=== PATIENT | female | born 1990 | race Caucasian/White ===

== ENCOUNTER → 2019-07-02 09:46 | Outpatient (CLI) | payer OTHER, SELFPAY ==
--- NOTE | 2019-07-02 09:51 | DI.US.S_ITS ---
PROCEDURE: US OB <= 14 WEEKS FETUS INDICATIONS: INITIAL ULTRASOUND FOR DATING AND VIABILITY PLEASE OUTSIDE/PRIOR DATING DATA: Last menstrual period (LMP): Unknown. LMP-based estimated date of delivery (ALICE): Unknown. First dating scan (date and location): 07/02/2019. Estimated date of delivery (ALICE) from first dating scan: 02/18/2020. TECHNIQUE: Real-time scanning was performed of the fetus and maternal pelvic organs, with image documentation. Endovaginal scanning was also performed to better visualize the fetus and maternal ovaries. COMPARISON: None. FINDINGS: Embryo: Mean gestational sac diameter measures 2.1 cm, corresponding with estimated gestational age of 7 weeks 0/7 days. No definite pole or yolk sac visualized. Measurement variability in dating: +/- 4 weeks by LMP, +/- 7 days by mean sac diameter (use before 6 weeks gestation if crown-rump length not able to be measured), +/- 5 days by crown-rump length (up to 8 weeks 6 days gestation), +/- 7 days by crown-rump length (up to 13 weeks 6 days gestation). Maternal organs: Ovaries are are within normal limits. Question of right corpus luteum. Trace free fluid in the pelvic colon sac. IMPRESSION: Intrauterine gestational sac corresponding to a estimated gestational age of approximately 7 weeks 0/7 days. No definite pole seen. Recommend short-term followup ultrasound to document crown-rump length for more accurate gestational age dating. Dictated by: Terry Gaffney M.D. on 07/02/2019 at 12:26 Approved by: Terry Gaffney M.D. on 07/02/2019 at 12:32
== END ==
PROVIDERS: PCP Obstetrics & Gynecology; Visit Provider Obstetrics & Gynecology
DX: Z34.81 Encounter for supervision of other normal pregnancy, first trimester (principal); Z3A.01 Less than 8 weeks gestation of pregnancy
CPT/HCPCS: 76801; 76817

== ENCOUNTER → 2019-07-11 14:09 | Outpatient (CLI) | payer OTHER, SELFPAY ==
[2019-07-11 16:14] LABS: HCG Quantitative /Beta subunit 5673.3 mIU/mL
== END ==
PROVIDERS: PCP Obstetrics & Gynecology; Visit Provider Obstetrics & Gynecology
DX: O20.9 Hemorrhage in early pregnancy, unspecified (principal)
CPT/HCPCS: 36415; 84702

== ENCOUNTER → 2019-07-15 12:02 | Outpatient (CLI) | payer OTHER, SELFPAY ==
[2019-07-15 13:27] LABS: HCG Quantitative /Beta subunit 2613.2 mIU/mL
== END ==
PROVIDERS: PCP Obstetrics & Gynecology; Visit Provider Obstetrics & Gynecology
DX: N91.2 Amenorrhea, unspecified (principal)
CPT/HCPCS: 36415; 84702

== ENCOUNTER → 2020-04-21 13:34 | Outpatient (CLI) | payer OTHER, SELFPAY ==
[2020-04-21 14:47] LABS: Add Manual Diff / Slide Review NO; Basophils Absolute Auto 0 /uL (0-100); Basophils Percent Auto 0.8 % (0-2); Eosinophils Absolute Auto 100 /uL (0-450); Eosinophils Percent Auto 1.5 % (2-4); Hematocrit 37.9 % (36-46); Hemoglobin 13.2 g/dL (12.0-16.0); Lymphocytes Absolute Auto 1200 /uL (1100-4500); Lymphocytes Percent Auto 21.4 % (25-40); Mean Corpuscular HGB Conc 34.7 % (30-36); Mean Corpuscular Hemoglobin 31.6 PG (26-34); Mean Corpuscular Volume 91.1 fL (80-100); Monocytes Absolute Auto 300 /uL (0-900); Monocytes Percent Auto 5.7 % (3-14); Neutrophils Absolute Auto 3800 /uL (1500-7000); Neutrophils Percent Auto 70.6 % (50-75); Platelet Count 232 X10^3/uL (150-400); Red Blood Cell Count 4.16 X10^6/uL (4.0-5.2); Red Cell Distribution Width 12.4 % (11.6-14.8); White Blood Cell Count 5.4 X10^3/uL (4.5-11.0)
[2020-04-21 14:52] LABS: Appearance Urine UA CLEAR; Bilirubin Urine UA NEGATIVE (NEGATIVE); Color Urine UA YELLOW; Glucose Urine UA NEGATIVE (Negative); Ketones Urine UA NEGATIVE (NEGATIVE); Leukocyte Esterase Urine UA NEGATIVE (NEGATIVE); Nitrite Urine UA NEGATIVE (Negative); Occult Blood Urine UA NEGATIVE (Negative); Protein Urine UA NEGATIVE (Negative); Specific Gravity Urine UA <=1.005 (1.000-1.035); Urobilinogen Urine UA 0.2 E.U./dL (0.2)
[2020-04-22 04:36] LABS: RPR Screen Non Reactive (Non Reactive)
[2020-04-22 12:53] LABS: Varicella IgG Antibody <135 index (Immune >165)
[2020-04-23 16:27] LABS: Hepatitis B Surface Antigen NEGATIVE s/c (NEGATIVE); Rubella Antibody IgG 27.9 IU/mL (>15)
[2020-04-23 16:45] LABS: HIV 1 & 2 Ab/Ag 4th Gen Combo NEGATIVE (NEGATIVE); Hep C Virus Ab w/Reflex Quant NEGATIVE s/c (NEGATIVE)
== END ==
PROVIDERS: Referring Provider Obstetrics & Gynecology; Visit Provider Obstetrics & Gynecology
DX: Z34.81 Encounter for supervision of other normal pregnancy, first trimester (principal); Z3A.12 12 weeks gestation of pregnancy
CPT/HCPCS: 36415; 80055; 81003; 86787; 86803; 86850; 86900; 86901; 87077; 87086; 87147; 87389

== ENCOUNTER → 2020-06-11 12:50 | Outpatient (CLI) | payer OTHER, SELFPAY ==
--- NOTE | 2020-06-11 12:51 | DI.US.S_ITS ---
PROCEDURE: US OB >= 14 WEEKS FETUS INDICATIONS: Anatomy Scan OUTSIDE/PRIOR DATING DATA: Last menstrual period (LMP): 01/27/20 LMP-based estimated date of delivery (ALICE): 11/02/20 . First dating scan (date and location): 04/21/20 . Estimated date of delivery (ALICE) from first dating scan: 10/25/20 . TECHNIQUE: Real-time scanning was performed of the fetus, with image documentation and biometric measurements. Endovaginal scanning: Not performed COMPARISON: [facility], , OB >= 14 WEEKS FETUS, 05/22/2020, 8:18. FINDINGS: General: A single living intrauterine gestation is present. Presentation: Breech. Placenta: Placental position is posterior/fundal , without previa. Amniotic fluid index: 11.9 cm, normal range is 5-24 cm. heart rate: 158 beats per minute. Maternal cervical canal: 3.9 cm long. Normal lower limit is 2.5 cm. biometrics: Biparietal diameter: 4.8 cm, 20 weeks 3 days Head circumference: 18.0 cm, 20 weeks 3 days Abdominal circumference: 15.9 cm, 21 weeks 0 days Femur length: 3.4 cm, 20 weeks 5 days Estimated gestational age from initial scan: 20 weeks 4 days Composite gestational age from present scan: 20 weeks 5 days Estimated weight and percentile: 379 g, 59th percentile Measurement variability for biometric dating: +/- 7 days from 14 weeks to 15 weeks 6 days gestation, +/- 10 days from 16 weeks to 21 weeks 6 days gestation, +/- 2 weeks from 22 weeks to 27 weeks 6 days gestation, +/- 3 weeks for 28 weeks gestation or later. weight reference: 4500 g or EFW >90/95% is considered macrosomia or large for gestational age. EFW <10% is small for gestational age. EFW 5% or less is considered intra-uterine growth restriction. Anatomic survey: Neuro: Ventricles are non-dilated at less than 10 mm. Cisterna magna is normal at 3-11 mm. Cerebellum is normal in size and morphology. Nuchal skin fold: Normal at less than 6 mm between 14-21 weeks gestational age. Face: Nose and lips, facial profile are normal. Spine: No evidence for spina bifida. Heart: 4-chambered heart is present, with normal ventricular outflow tracts. Diaphragm: Diaphragm is intact. Stomach: Left-sided stomach is present. Kidneys: No hydronephrosis. Normal is less than 5 mm in 2nd trimester, less than 7 mm in 3rd trimester. Cord: 3-vessel cord has orthotopic insertion. Bladder: Normal in size. Extremities: All 4 extremities identified. IMPRESSION: Single living intrauterine fetus in breech presentation. Expected interval growth as above Normal anatomic survey Dictated by: Ceasar Rascon M.D. on 06/11/2020 at 16:17 Approved by: Ceasar Rascon M.D. on 06/11/2020 at 16:19
== END ==
LOC: US 12:50
PROVIDERS: PCP Obstetrics & Gynecology; Referring Provider Obstetrics & Gynecology; Visit Provider Obstetrics & Gynecology
DX: Z34.82 Encounter for supervision of other normal pregnancy, second trimester (principal); Z3A.20 20 weeks gestation of pregnancy
CPT/HCPCS: 76811

== ENCOUNTER → 2020-09-03 09:40 | Outpatient (CLI) | payer OTHER, SELFPAY ==
[2020-09-03 11:23] LABS: Hematocrit 32.8 % (36-46); Hemoglobin 11.6 g/dL (12.0-16.0)
[2020-09-03 12:41] LABS: GTT (PREG) 1 Hour PP 50gm Dose 114 mg/dL (76-139)
== END ==
PROVIDERS: PCP Family Medicine; Referring Provider Obstetrics & Gynecology; Visit Provider Obstetrics & Gynecology
DX: Z34.82 Encounter for supervision of other normal pregnancy, second trimester (principal); Z3A.26 26 weeks gestation of pregnancy
CPT/HCPCS: 36415; 82950; 85014; 85018

== ENCOUNTER → 2020-10-08 10:46 | Outpatient (CLI) | payer OTHER, SELFPAY ==
[2020-10-10 19:07] LABS: Strep Grp B PCR POS for Grp B Strep
== END ==
PROVIDERS: PCP Family Medicine; Visit Provider Obstetrics & Gynecology
DX: Z34.83 Encounter for supervision of other normal pregnancy, third trimester (principal); Z3A.37 37 weeks gestation of pregnancy
CPT/HCPCS: 87653

== ENCOUNTER 2020-10-19 05:45 | Inpatient (IN) | payer OTHER, SELFPAY ==
[2020-10-19] VITALS (7 sets, daily range): BP systolic 97–129; BP diastolic 39–71; PULSE 63–77; RESP 12–16; TEMP 36.2–37; O2SAT 96–97
[2020-10-19 06:34] LABS: Add Manual Diff / Slide Review NO; Basophils Absolute Auto 100 /uL (0-100); Basophils Percent Auto 0.6 % (0-2); Eosinophils Absolute Auto 200 /uL (0-450); Eosinophils Percent Auto 2.2 % (2-4); Lymphocytes Absolute Auto 2100 /uL (1100-4500); Lymphocytes Percent Auto 21.7 % (25-40); Mean Corpuscular HGB Conc 35.2 % (30-36); Mean Corpuscular Hemoglobin 32.6 PG (26-34); Mean Corpuscular Volume 92.6 fL (80-100); Monocytes Absolute Auto 800 /uL (0-900); Monocytes Percent Auto 8.4 % (3-14); Neutrophils Absolute Auto 6400 /uL (1500-7000); Neutrophils Percent Auto 67.1 % (50-75); Platelet Count 236 X10^3/uL (150-400); Red Blood Cell Count 3.99 X10^6/uL (4.0-5.2); Red Cell Distribution Width 13.8 % (11.6-14.8); White Blood Cell Count 9.5 X10^3/uL (4.5-11.0)
[2020-10-19] MEDS: LACTATED RINGERS 1,000 ML 42 ML IV ×3 (06:40→08:32)
[2020-10-19 07:17] LABS: COVID19 -Nasal RAPID Negative (Negative)
--- NOTE | 2020-10-19 07:28 | SUR.OPER ---
Supine on Padded OR bed, head on pillow, safety belt at thigh, arms secured on padded arm boards at <90 degrees abduction. Bump under right buttock. Legs uncrossed with pillow under knees, gel pad to heels, tape over blanket to lower legs.
--- NOTE | 2020-10-19 07:35 | P.HPOB_ITS ---
OB HPI Date/Time Date of admission: 10/19/20 Date Patient Seen: 10/19/20 Time Patient Seen: 07:35 History of Present Condition Chief complaint: INPT : 2 Para: 1 Estimated Date of Delivery: 10/25/20 Estimated Gestational Age (weeks): 39+1 Narrative: Jack Miller is a 30 year old female 2 para 1 at 39-,1/7 weeks gestation here for primary section due to persistent breech presentation. Indications Operative indications ( section): malpresentation ( Breech) History of Present care: good care, initiated at week # (13), number of visits (10) and p ounds weight gain (39) Dating criteria: LMP confirmed by 1st trimester US Ultrasounds: normal 1st trimester US and normal mid trimester US Obstetrical complications: other (Breech) Medical complications: none Preadmission Labs Blood type: O (+) positive -: Antibody screen: negative, GBS status: positive, HBsAG: negative, HIV: negative and RPR/VDLR: negative -: Chlamydia screen: not detected and Gonorrhea screen: not detected -: Rubella: immune and Varicella: not immune HCT: 37 HCAB: reactive PAP: Abnormal (ASCUS, + HR HPV) Urine: GBS 1 hr GTT: 114 Prior (ies) History: Evaluation Evaluation Baseline heart rate: 140 Variability: Moderate (11-25) monitor accelerations: Present monitor decelerations: Absent Status: Category l Laboratory results: Laboratory Tests 10/19/20 10/19/20 10/19/20 06:05 06:15 06:15 WBC 9.5 RBC 3.99 L Hgb 13.0 Hct 37.0 MCV 92.6 MCH 32.6 MCHC 35.2 RDW 13.8 Plt Count 236 Neut % (Auto) 67.1 Lymph % (Auto) 21.7 L [place] % (Auto) 8.4 Eos % (Auto) 2.2 Baso % (Auto) 0.6 Neut # (Auto) 6400 Lymph # (Auto) 2100 [place] # (Auto) 800 Eos # (Auto) 200 Baso # (Auto) 100 SARS-CoV-2 (PCR) Negative Blood Type O Positive Antibody Screen Negative [facility] Surgical History (Updated 04/22/20 @ 19:27 by Pat Hernandez) Anesthesia History of surgery (~10/01/19) Social History Smoking Status: Never smoker Meds Home Medications and Allergies Home Medications Medication Instructions Recorded Confirmed Type VIT#96/FERROUS FUM/FA 1 tab PO Q DAY #0 07/01/11 10/19/20 History ( Tablet) Allergies Allergy/AdvReac Type Severity Reaction Status Date / Time No Known Allergies Allergy Uncoded 10/15/20 15:39 Exam Vital Signs (past 8 hours): - 10/19/20 06:35 Blood Pressure 129/71 Narrative Exam Narrative: generally: Patient is sitting up in bed, no acute distress cardiovascular: Regular rate and rhythm lungs: Clear to auscultation bilaterally fundal height: 39 cm estimated weight: 8 lb extremities: no edema, 1+ DTRs Objective Labs Result Diagrams: 10/19/20 06:15 Labs: Laboratory Results - last 24 hr 10/19/20 10/19/20 10/19/20 06:05 06:15 06:15 WBC 9.5 RBC 3.99 L Hgb 13.0 Hct 37.0 MCV 92.6 MCH 32.6 MCHC 35.2 RDW 13.8 Plt Count 236 Neut % (Auto) 67.1 Lymph % (Auto) 21.7 L [place] % (Auto) 8.4 Eos % (Auto) 2.2 Baso % (Auto) 0.6 Neut # (Auto) 6400 Lymph # (Auto) 2100 [place] # (Auto) 800 Eos # (Auto) 200 Baso # (Auto) 100 SARS-CoV-2 (PCR) Negative Blood Type O Positive Antibody Screen Negative Assessment and Plan Assessment and Plan Assessment and Plan narrative: assessment: 30-year-old 2 para 1 at 39-,1/7 weeks gestation With persistent breech presentation plan: primary low-transverse section. Time Spent with Patient Total time spent with greater than 50% in coordination of care (as documented) at patient's floor/unit and/or counseling patient:: less than 15 minutes
[2020-10-19] MEDS: CITRIC ACID/SODIUM CITRATE 15 ML SOLUTION 30 ML PO (07:41)
--- NOTE | 2020-10-19 07:43 | PM.PREOP ---
Pre-operative Note COVID-19 COVID-19 status: Negative Result date/Date tested (Pos, Neg/Pending): 10/19/20 Interval Note History & Physical reviewed/Exam performed by Physician: Yes Changes to H&P: No H&P completed within 30 days and has changed as indicated here:: 10/19/20
[2020-10-19] MEDS: CEFAZOLIN 2 GM/100 ML FROZ.PIGGY IV (07:54)
--- NOTE | 2020-10-19 08:30 | SUR.OPER ---
live male at 0830
--- NOTE | 2020-10-19 09:21 | P.OP_ITS ---
Operative Date/Time/Diagnoses Date of procedure: 10/19/20 Time of procedure: 09:21 Procedure & Clinicians Same procedure as scheduled: Yes Operative Notes Procedure in detail: Preoperative diagnosis: 1. IUP at 39 weeks 1 day 2. 3. Breech presentation, beni 4. GBS Positive Postoperative diagnosis: Same Surgeon: Angela Colby MD Community Outreach Worker: Natalie Davis MD Anesthesia: Spinal Complications: None Estimated blood loss: 300 Fluids: 2400 crystalloid Urine output: 150 cc clear urine at end of procedure. Indications: 30 yo female at 39w1d. Findings: Viable male infant in beni breech presentation. Clear fluid with 3 vessel cord. APGARS 7/9. Weight 9 lb, 4900 g. Normal uterus, tubes, and ovaries. The patient was taken to the operating room where spinal anesthesia was found to be adequate. She was then prepared and draped in the normal sterile fashion in the dorsal supine position with a leftward tilt. A Pfannenstiel skin incision was then made with a scalpel and carried through to the underlying layer of fascia. The fascia was incised in the midline and the incision extended laterally with Gibson scissors. The superior aspect of the fascial incision was then grasped with the Erica clamps, elevated, and the underlying rectus muscles dissected off sharply. Attention was then turned to the inferior aspect of this incision, which in a similar fashion, was grasped, tented up with the Erica clamps, and the rectus muscle dissected off bluntly. The rectus muscles were then in the midline, and the peritoneum identified, tented up, and entered sharply with Metzenbaum scissors. The peritoneal incision was then extended superiorly and inferiorly with good visualization of the bladder. The bladder blade was then inserted and the vesicouterine peritoneum identified, grasped with pickups, and entered sharply with Metzenbaum scissors. This incision was then extended laterally and the bladder flap created digitally. The bladder blade was then reinserted and the lower uterine uterine segment incised in a transverse fashion with the scalpel. The uterine incision was then extended laterally digitally. The bladder blade was removed and the found to be in beni breech position. The breech was delivered without difficulty and using the usual maneuvers, the remainder of the body and head delivered atraumatically. The cord was clamped and cut. The infant was handed off to the nurses in attendance. The placenta was then removed manually and the uterus cleared of all clots and debris. The uterine incision was repaired with 1-0 chromic in a running locking fashion. A second layer of the same suture was used to obtain excellent hemostasis. The bladder flap was repaired with 2-0 Vicryl in a running stitch and the uterus returned to the abdomen. The gutters were cleared of all clots and the peritoneum closed with 2-0 Vicryl. The fascia was reapproximated with 0 Vicryl in a running fashion. The subcutaneous layer was closed with 3-0 vicryl. The skin was closed with 4-0 biosyn using a subcutaneous needle. The patient tolerated the procedure well. Sponge lap and needle counts were correct x2. 2 g of Ancef was given at beginning a procedure. The patient was taken to the recovery room in stable condition. Post-operative Condition: stable Disposition: PACU
--- NOTE | 2020-10-19 11:31 | SUR.PHASEI ---
Pt transferred to labor and delivery with no problems. Care assumed by l and d nurse. VSS. AOx4.
[2020-10-19] MEDS: LACTATED RINGERS 1,000 ML 100 ML IV (12:33)
[2020-10-19] MEDS: KETOROLAC 30 MG/ML VIAL IV ×2 (15:22→21:20)
[2020-10-20] MEDS: KETOROLAC 30 MG/ML VIAL IV (03:12)
[2020-10-20 06:58] LABS: Hematocrit 32.3 % (36-46); Hemoglobin 11.6 g/dL (12.0-16.0)
[2020-10-20] MEDS: ACETAMINOPHEN 325 MG TABLET 975 MG PO (09:17)
[2020-10-20] MEDS: DOCUSATE 250 MG CAPSULE PO (09:17)
[2020-10-20] MEDS: PRENATAL VIT,CALC/IRON/FOLIC 1 TABLET 1 TAB PO (09:18)
[2020-10-20] MEDS: IBUPROFEN 600 MG TABLET PO (09:19)
--- NOTE | 2020-10-20 15:03 | P.DS_ITS ---
Discharge Providers Provider Date of admission: 10/19/20 05:45 Discharge Date: 10/20/20 Primary care physician: Shanice Yi MD Consults: 10/19/20 10:09 Consult to Parachute Repairer Routine Comment: Discharge provider: Natalie Davis MD Summary Hospital Course Date Patient Seen: 10/20/20 Time Patient Seen: 07:35 Diagnoses: Thirty-nine weeks gestation Persistent breech presentation Primary low-transverse section Spinal anesthesia Hospital Course: Patient is a 30-year-old 3 para 2 who presented on October 19, 2020 for a scheduled primary low-transverse section due to persistent breech presentation. She underwent a primary low-transverse section without complication. Her postoperative course was unremarkable and she is discharged home on postop day # 1. She is tolerating a diet. She has emptied her bladder without the catheter. No nausea or vomiting. Minimal bleeding. Pain is well controlled with Toradol and Tylenol. Peripartum Data Laceration Description: None Episiotomy description: None Procedures: Primary low-transverse section Spinal anesthesia complications: none 1: Gender: Male Disposition of : home Status at Discharge Cognitive/behavioral status at discharge: oriented Functional status at discharge: independent ambulation Overall status at discharge: patient is progressing back to baseline Time Spent with Patient Time attestation: Total time spent providing and/or coordinating discharge services: Time spent: Less than 30 minutes Objective Labs Result Diagrams: 10/20/20 06:26 Labs: Laboratory Results - last 24 hr 10/20/20 06:26 Hgb 11.6 L Hct 32.3 L Exam Vital Signs (past 8 hours): Oxygen Delivery Method Room Air Oxygen Flow Rate 0 Narrative Exam Narrative: Generally: Patient is sitting up in the chair, no acute distress Lungs: Clear to auscultation bilaterally Cardiovascular: Regular rate and rhythm Fundal height: U -1 Incision: Clean dry and intact with Aquacel dressing Extremities: No edema, negative Homans Discharge Plan Discharge Plan Patient Disposition: Home Provider Discharge Comment: Call with fever, chills, redness or drainage around the incision, or bleeding vaginally more than a pad in an hour Continue vitamins Tylenol 650 mg every 6 hours Ibuprofen 600 mg every 6 hours Discharge orders & Medications Prescriptions: New oxycodone 5 mg tablet 5 mg PO Q4H PRN (Reason: pain) Qty: 20 RF: 0 oxycodone 5 mg tablet 5 mg PO Q4H PRN (Reason: pain) Qty: 20 RF: 0 Continued VIT#96/FERROUS FUM/FA ( Tablet) 1 tab PO Q DAY Qty: 0 RF: 0 Follow up/Referrals: Natalie Davis MD [Physician] - 1 Week (Aquacel dressing removal on Thursday, October 26 at 11:00 am) Diet/Activity/Treatments Diet: Regular Activity: No heavy lifting Skin/Wound/Dressing Care Report to your healthcare provider any signs of infection, such as:: chills, fever, increased pain, unusual drainage and unusual redness Dressing: Do not remove Visit Report/Discharge Packet Instructions: DI for , DI for Prescription Opioid Use Discharge Data Primary Care Provider: Shanice Yi
--- NOTE | 2020-10-23 06:11 | PM.GYNOP.1 ---
Operative Date/Time/Diagnoses Date of procedure: 10/19/20 Time of procedure: 09:18 Pre-op diagnosis: Persistent breech presentation Estimated gestational age of 39 weeks Post-op diagnosis: same Procedure & Clinicians Procedure: Procedures Operation Date: 10/19/20 07:45 Actual Procedures Side Surgeon p Primary Section Natalie Davis MD Indications: Estimated gestational age of 39 weeks Persistent breech presentation Surgeon: Natalie Davis Web Application Developer: Angela Colby Anesthesia Type: Spinal (With Duramorph) Operative Notes Findings: Live male in the complete breech presentation Normal tubes and ovaries Normal uterus Closure Type: primary Specimen(s): other (Cord bloods, placenta) Applied: catheter (To continuous drainage) Estimated blood loss (mL): 500 Blood products transfused: none Procedure in detail: The patient was taken to the operating room where she was placed in the seated position. Spinal anesthesia was administered. She was then placed in the dorsal supine position with a leftward tilt. She was prepped and draped in the usual sterile fashion. A timeout was performed. After spinal analgesia was found to be adequate, a Pfannenstiel skin incision was made 2 fingerbreadths above the pubic symphysis and carried through to the underlying layer fascia. The fascia was nicked in the midline, and the incision extended bilaterally with the Gibson scissors. The superior aspect of the fascial incision was grasped with a Marianna clamps, elevated, and the underlying rectus muscles dissected off sharply and bluntly. Attention was then turned to the inferior aspect of this incision which in a similar fashion was grasped with a [place] clamps, elevated, and the underlying rectus muscles dissected off sharply and bluntly. The rectus muscles were in the midline. The peritoneum was identified, grasped between 2 hemostats, and entered sharply with the Metzenbaum scissors. This incision was extended superiorly and inferiorly with good visualization of the bladder. The bladder blade was inserted. The vesicouterine peritoneum was identified, grasped with the pickup, and entered sharply with the Metzenbaum scissors. This incision was extended bilaterally, and the bladder flap was created digitally. The bladder blade was reinserted. The lower uterine segment was incised in a transverse fashion with the scalpel. Upon entering the amniotic sac there was a copious amount of clear amniotic fluid. The was found to be in the complete breech presentation. With fundal pressure, the buttocks was brought through the incision. Both legs were delivered. The remainder of the body was delivered by total breech extraction by removing each arm and then placing 2 fingers into the baby's mouth to keep the head flexed as the head was delivered. The cord was double clamped and cut. The was handed off to waiting RN and RT. The placenta was delivered manually. The uterus was cleared of all clots and debris. The uterine incision was repaired with #1 chromic in a running interlocking fashion, and a second layer the same suture was used for an imbricating layer. Hemostasis was achieved. The tubes and ovaries were examined and were found to be normal. The gutters were cleared of all clots and debris. The bladder flap was reapproximated using 2-0 Vicryl in a running fashion. The parietal peritoneum was closed using 2-0 Vicryl in a running fashion. The fascia was reapproximated using 0 Vicryl in a running fashion. Subcutaneous layer was copiously irrigated with warm normal saline. Five simple interrupted sutures of 3-0 Vicryl were placed to reapproximate the subcutaneous layer. The skin was closed with 4-0 Biosyn in a subcuticular fashion. Steri-Strips were placed. An Aquacel dressing was placed. The uterus was expressed of a small amount of old blood. Sponge, lap, and instrument counts were correct x-2. The patient tolerated the procedure well, and was taken to PACU in stable condition. Complications: none Post-operative Condition: stable Disposition: PACU Plan for aftercare: To the center after recovery
== END 2020-10-20 12:46 | disposition home or self-care (01) | DRG 788 ==
PROVIDERS: Admitting Provider Obstetrics & Gynecology; PCP Family Medicine; Referring Provider Obstetrics & Gynecology; Visit Provider Obstetrics & Gynecology
PROC: (CPT 59514; principal; 2020-10-19 07:45)
DX: O64.1XX0 Obstructed labor due to breech presentation, not applicable or unspecified (principal); Z3A.39 39 weeks gestation of pregnancy; Z37.0 Single live birth; O99.824 Streptococcus B carrier state complicating childbirth; Z20.822 Contact with and (suspected) exposure to COVID-19
CPT/HCPCS: 36415; 59050; 59510; 85014; 85018; 85025; 86850; 86900; 86901; 87635; C9803; J0690; J1885; J2274; J2405; J2590

== ENCOUNTER → 2021-07-20 12:14 | Outpatient (CLI) | payer SELFPAY ==
--- NOTE | 2021-07-20 12:15 | DI.US.S_ITS ---
PROCEDURE: US OB <= 14 WEEKS FETUS INDICATIONS: INITIAL VIABILITY DATING. OUTSIDE/PRIOR DATING DATA: Last menstrual period (LMP): Unknown. LMP-based estimated date of delivery (ALICE): Un known. First dating scan (date and location): 07/20/2021. Estimated date of delivery (ALICE) from first dating scan: Not applicable. TECHNIQUE: Real-time scanning was performed of the fetus and maternal pelvic organs, with image documentation. Endovaginal scanning was also performed to better visualize the fetus and maternal ovaries. COMPARISON: [facility], , US OB >= 14 WEEKS FETUS, 10/02/2020, 11:39. [facility], , US OB >= 14 WEEKS FETUS, 09/17/2020, 15:26. [facility], , US OB >= 14 WEEKS FETUS, 09/03/2020, 17:01. [facility], , US OB >= 14 WEEKS FETUS, 08/13/2020, 16:10. [facility], , OB >= 14 WEEKS FETUS, 06/11/2020, 13:12. [facility], , US OB >= 14 WEEKS FETUS, 05/22/2020, 8:18. [facility], , US PELVIC COMPLETE, 11/07/2019, 13:40. [facility], MR, MR CARDIAC VIABILITY, 09/30/2019, 8:29. [facility], , US OB <= 14 WEEKS FETUS, 04/21/2020, 13:52. [facility], , US OB >= 14 WEEKS FETUS, 10/08/2020, 10:19. FINDINGS: An intrauterine gestational sac is identified measuring 3.07 cm corresponding to 8 weeks 2 days. No pole or yolk sac is identified. Maternal organs: Left ovary is not visualized. Right ovary is unremarkable. IMPRESSION: 1. Gestational sac without visualized yolk sac or pole. Given the measurements of the gestational sac, this is felt to be a nonviable . Recommend correlation to beta HCG levels. We strive to produce accurate, complete, and clear reports of imaging services. To assist us in improving patient care, this report was composed using standard report templates and voice recognition software. Therefore, it may contain abnormal punctuation, insertions and/or omissions. Occasional wrong-word or sound-alike substitutions may occur. Though we review the report and make efforts to correct it, we do recommend that the report be read carefully in proper context to recognize any text inaccuracies. Dictated by: Alexsandra Garner M.D. on 07/20/2021 at 13:45 Approved by: Alexsandra Garner M.D. on 07/20/2021 at 13:48
[2021-07-20 13:09] LABS: Add Manual Diff / Slide Review NO; Basophils Absolute Auto 0 /uL (0-100); Eosinophils Absolute Auto 100 /uL (0-450); Eosinophils Percent Auto 1.7 % (2-4); Hematocrit 38.6 % (36-46); Hemoglobin 13.2 g/dL (12.0-16.0); Lymphocytes Absolute Auto 1100 /uL (1100-4500); Lymphocytes Percent Auto 22.5 % (25-40); Mean Corpuscular HGB Conc 34.3 % (30-36); Mean Corpuscular Hemoglobin 31.1 PG (26-34); Mean Corpuscular Volume 90.7 fL (80-100); Monocytes Absolute Auto 300 /uL (0-900); Monocytes Percent Auto 6.1 % (3-14); Neutrophils Absolute Auto 3300 /uL (1500-7000); Neutrophils Percent Auto 68.7 % (50-75); Platelet Count 260 X10^3/uL (150-400); Red Blood Cell Count 4.26 X10^6/uL (4.0-5.2); Red Cell Distribution Width 12.5 % (11.6-14.8); White Blood Cell Count 4.9 X10^3/uL (4.5-11.0)
[2021-07-20 13:38] LABS: Appearance Urine UA CLEAR; Bilirubin Urine UA NEGATIVE (NEGATIVE); Color Urine UA YELLOW; Glucose Urine UA NEGATIVE (Negative); Ketones Urine UA NEGATIVE (NEGATIVE); Leukocyte Esterase Urine UA NEGATIVE (NEGATIVE); Nitrite Urine UA NEGATIVE (Negative); Occult Blood Urine UA NEGATIVE (Negative); Protein Urine UA NEGATIVE (Negative); Urobilinogen Urine UA 0.2 E.U./dL (0.2)
[2021-07-20 13:48] LABS: pH Urine UA 6.5 (4.5-8.0)
[2021-07-21 08:10] LABS: RPR Screen Non Reactive (Non Reactive); Varicella IgG Antibody <135 index (Immune >165)
[2021-07-21 15:18] LABS: HCG Quantitative /Beta subunit 58607 mIU/mL
[2021-07-21 19:03] LABS: HIV 1 & 2 Ab/Ag 4th Gen Combo NEGATIVE (NEGATIVE); Hep C Virus Ab w/Reflex Quant NEGATIVE s/c (NEGATIVE); Hepatitis B Surface Antigen NEGATIVE s/c (NEGATIVE); Rubella Antibody IgG 27.7 IU/mL (>15)
== END ==
PROVIDERS: PCP Family Medicine; Referring Provider Obstetrics & Gynecology; Visit Provider Obstetrics & Gynecology
DX: O36.80X0 Pregnancy with inconclusive fetal viability, not applicable or unspecified (principal)
CPT/HCPCS: 36415; 76801; 76817; 80055; 81003; 84702; 86787; 86803; 86850; 86900; 86901; 87086; 87389

== ENCOUNTER → 2021-08-11 15:51 | Outpatient (CLI) | payer OTHER, MEDICAID, SELFPAY ==
[2021-08-11 16:29] LABS: COVID19 -Nasal RAPID Negative (Negative)
== END ==
PROVIDERS: PCP Family Medicine; Visit Provider Obstetrics & Gynecology
DX: Z01.812 Encounter for preprocedural laboratory examination (principal); Z20.822 Contact with and (suspected) exposure to COVID-19
CPT/HCPCS: 87635; C9803

== ENCOUNTER 2021-08-12 06:39 | Day surgery (SDC) | payer OTHER, MEDICAID, SELFPAY ==
--- NOTE | 2021-08-12 | PATH_ITS ---
[facility] Accession Number: [id number] . 01 Material submitted: . product of conception - PRODUCTS OF CONCEPTION . 02 Diagnosis: Products of Conception: Products of conception identified. [facility] 08/17/2021 1142 Local . 02 Electronically signed: . Melissa Chandra MD, Pathologist NPI- [id number] . 01 Gross description: . The specimen is received in formalin, labeled products of conception, and consists of multiple gonzales-pink fragments of soft tissue and clotted blood measuring 7.0 x 5.0 x 2.0 cm in aggregate. Chorionic villi are identified. No parts are identified. [employer] Administrator sections are submitted in cassettes A1-A2. ([id number]) /[facility] 08/14/2021 [facility]9 Local . 02 Pathologist provided ICD-10: O02.1 . 02 CPT . 508611 Performed at: 01 [facility] Cytology [address] [place] [id number] MD Arsenio Arevalo MD Phone: [phone] Performed at: 02 [facility] [address] [place], [place] [id number] MD Amanda Chacon MD Phone: [phone]
[2021-08-12 07:08] VITALS: BMI 24.1
--- NOTE | 2021-08-12 07:12 | SUR.OPER ---
Lithotomy on padded OR bed, head on pillow, arms secured on padded arm boards at <90 degrees abduction. Legs secured in padded yellow fins stirrups.
[2021-08-12 07:16] VITALS: BP 106/66; PULSE 67; RESP 16; TEMP 36.9; O2SAT 100
[2021-08-12] MEDS: LACTATED RINGERS 1,000 ML 100 ML IV (07:30)
--- NOTE | 2021-08-12 08:25 | PM.HP.1 ---
History of Present Illness History of Present Illness Date Patient Seen: 08/12/21 Time Patient Seen: 08:25 Chief complaint: SUCTION D&C Narrative: Patient is a 31-year-old 4 para 2011 with a blighted ovum at 8 weeks gestation. She presents for a suction D&C. Patient had a miscarriage in early 2019 and had expected management with very traumatic experience. She opts for surgical management this time. Patient History Medical History Abnormal uterine bleeding (AUB) Breech presentation Delivery by section for breech presentation Surgical History Anesthesia History of surgery (~10/01/19) Family & Social History Social History: household members significant other Tobacco & Substance use: Smoking Status Never smoker alcohol intake never Substance Use Type does not use Meds Home Medications and Allergies Home Medications Medication Instructions Recorded Confirmed Type VIT#96/FERROUS FUM/FA 1 tab PO Q DAY #0 07/01/11 08/12/21 History ( Tablet) Allergies Allergy/AdvReac Type Severity Reaction Status Date / Time No Known Allergies Allergy Verified 08/12/21 07:04 Exam Vital Signs (past 8 hours): - 08/12/21 07:16 Temperature 98.4 F Pulse Rate 67 Respiratory Rate 16 Blood Pressure 106/66 Pulse Oximetry 100 Oxygen Delivery Method Room Air Narrative Exam Narrative: HEENT: No thyromegaly, no anterior cervical or supraclavicular lymphadenopathy. Lungs:Clear to auscultation bilaterally, no wheezes. Cardiovascular: Regular rate and rhythm, no murmurs, rubs, or gallops. Abdomen: No scars. No hepatosplenomegaly. No masses palpable. External genitalia: Normal Vagina: Normal Cervix: Normal Bimanual exam: 8 Week size uterus. Mobile. No adnexal masses or tenderness Assessment & Plan Assessment & Plan narrative: Assessment: 31-year-old 4 para 2011 with a blighted ovum at 8 weeks gestation Blood type is O positive Plan: Suction D&C The risks, benefits, and alternatives to the procedure were explained to the patient. The risks including bleeding, infection, and uterine perforation. She understands these risks and agrees to proceed. A full par Q was held and consent form was signed. COVID-19 COVID-19 status: Negative Result date/Date tested (Pos, Neg/Pending): 08/11/21 Time Spent With Patient Time with patient: less than 30 minutes Critical Care time: I spent a total of [] minutes of critical care time on this patient's care today; this time is exclusive of procedural time.
--- NOTE | 2021-08-12 08:28 | PM.PREOP ---
Pre-operative Note COVID-19 COVID-19 status: Negative Result date/Date tested (Pos, Neg/Pending): 08/11/21 Interval Note History & Physical reviewed/Exam performed by Physician: Yes Changes to H&P: No H&P completed within 30 days and has changed as indicated here:: 08/12/21
--- NOTE | 2021-08-12 08:49 | PM.GYNOP.1 ---
Operative Date/Time/Diagnoses Date of procedure: 08/12/21 Time of procedure: 08:49 Pre-op diagnosis: Blighted ovum Post-op diagnosis: same Procedure & Clinicians Procedure: Procedures Operation Date: 08/12/21 08:15 Actual Procedure Side Surgeon p suction D&C Not Applicable Natalie Davis MD Indications: Blighted ovum Surgeon: Natalie Davis Anesthesia Type: General (LMA) Operative Notes Findings: 9 week size anteverted uterus Large amount of POC Closure Type: not applicable Specimen(s): products of conception Estimated blood loss (mL): 100 Blood products transfused: none Procedure in detail: After informed consent was obtained, the patient was taken to the operating room where she was placed in the dorsal supine position. After adequate LMA general anesthesia was achieved, she was placed in the dorsal lithotomy position, and prepped and draped in the usual sterile fashion. A time-out was performed. A bivalve speculum was placed into the vagina and the anterior lip of the cervix was grasped with a single-tooth tenaculum. The cervical os was sequentially dilated to the # 9 Hegar dilator. The # 9 curved plastic curette passed easily into the endometrial cavity. Several passes with suction revealed fluid and blood. Some placental tissue was then grasped with polyp forceps as it was coming through the cervical os. Several more passes with suction revealed blood only. Gentle sharp curettage was performed yielding minimal amount of tissue. Several more passes with suction revealed blood only. The instruments were removed from the uterus. The single-tooth tenaculum was removed from the anterior lip of the cervix. There was a small amount of bleeding noted from the tenaculum site and a ring forcep was placed for 2 minutes and hemostasis was achieved. There was a small amount of blood coming from the cervical os. Sponge, lap, and instrument counts were correct x2. The patient tolerated the procedure well, and was taken to PACU in stable condition. Complications: none Post-operative Condition: stable Disposition: PACU Plan for aftercare: Home after recovery
[2021-08-12 08:55] VITALS: BP 109/68; PULSE 57; RESP 14; TEMP 36.2; O2SAT 98
[2021-08-12 09:00] VITALS: BP 108/57; PULSE 68; RESP 12; O2SAT 99
[2021-08-12 09:05] VITALS: BP 105/67; PULSE 53; RESP 14; O2SAT 99
[2021-08-12 09:10] VITALS: BP 95/57; PULSE 46; RESP 14; TEMP 36.5; O2SAT 99
[2021-08-12 09:15] VITALS: BP 100/53; PULSE 56; RESP 16; TEMP 36.2; O2SAT 96
== END 2021-08-12 09:33 | disposition home or self-care (01) ==
PROVIDERS: PCP Family Medicine; Referring Provider Obstetrics & Gynecology; Visit Provider Obstetrics & Gynecology
PROC: (CPT 58120; principal; 2021-08-12 08:15)
DX: O02.0 Blighted ovum and nonhydatidiform mole (principal); Z3A.08 8 weeks gestation of pregnancy
CPT/HCPCS: 59820; 81025; J1100; J1885; J2250; J2405; J2704; J3010

== ENCOUNTER → 2022-02-18 10:29 | Outpatient (CLI) | payer OTHER, MEDICAID, SELFPAY ==
[2022-02-18 12:13] LABS: Appearance Urine UA CLEAR; Bilirubin Urine UA NEGATIVE (NEGATIVE); Color Urine UA YELLOW; Glucose Urine UA NEGATIVE (Negative); Ketones Urine UA NEGATIVE (NEGATIVE); Leukocyte Esterase Urine UA NEGATIVE (NEGATIVE); Nitrite Urine UA NEGATIVE (Negative); Occult Blood Urine UA NEGATIVE (Negative); Protein Urine UA NEGATIVE (Negative); Urobilinogen Urine UA 0.2 E.U./dL (0.2)
[2022-02-18 12:16] LABS: pH Urine UA 7.5 (4.5-8.0)
[2022-02-18 12:40] LABS: Add Manual Diff / Slide Review NO; Basophils Absolute Auto 0 /uL (0-100); Basophils Percent Auto 0.7 % (0-2); Eosinophils Absolute Auto 100 /uL (0-450); Eosinophils Percent Auto 1.8 % (2-4); Hematocrit 34.8 % (36-46); Hemoglobin 12.1 g/dL (12.0-16.0); Lymphocytes Absolute Auto 1000 /uL (1100-4500); Lymphocytes Percent Auto 18.6 % (25-40); Mean Corpuscular HGB Conc 34.7 % (30-36); Mean Corpuscular Hemoglobin 31.6 PG (26-34); Mean Corpuscular Volume 90.9 fL (80-100); Monocytes Absolute Auto 300 /uL (0-900); Monocytes Percent Auto 5.7 % (3-14); Neutrophils Absolute Auto 3800 /uL (1500-7000); Neutrophils Percent Auto 73.2 % (50-75); Platelet Count 226 X10^3/uL (150-400); Red Blood Cell Count 3.83 X10^6/uL (4.0-5.2); Red Cell Distribution Width 13.3 % (11.6-14.8); White Blood Cell Count 5.2 X10^3/uL (4.5-11.0)
[2022-02-18 15:21] LABS: HIV 1 & 2 Ab/Ag 4th Gen Combo NEGATIVE (NEGATIVE); Hep C Virus Ab w/Reflex Quant NEGATIVE s/c (NEGATIVE); Hepatitis B Surface Antigen NEGATIVE s/c (NEGATIVE); Rubella Antibody IgG 20.7 IU/mL (>15)
[2022-02-19 04:37] LABS: RPR Screen Non Reactive (Non Reactive)
[2022-02-19 08:53] LABS: Varicella IgG Antibody <135 index (Immune >165)
[2022-02-21 12:59] LABS: AFP, Serum 33.3 ng/mL (.); Estriol, Free 1.07 ng/mL (.); Inhibin A, MoM 0.69 (.); Maternal Ethnicity Caucasian (.); Maternal Weight 149 lbs (.); Number of Fetuses No (.); OSBR Risk 1 IN 10000 (.); Results Report (.); Test Results *Screen Negative* (.); hCG, MoM 1.29 (.); hCG, Serum 33046 mIU/mL (.)
== END ==
PROVIDERS: PCP Family Medicine; Referring Provider Obstetrics & Gynecology; Visit Provider Obstetrics & Gynecology
DX: Z34.82 Encounter for supervision of other normal pregnancy, second trimester (principal); Z3A.16 16 weeks gestation of pregnancy
CPT/HCPCS: 36415; 80055; 81003; 82105; 82677; 84702; 86336; 86787; 86803; 86850; 86900; 86901; 87086; 87389

== ENCOUNTER → 2022-03-21 14:23 | Outpatient (CLI) | payer OTHER, MEDICAID, SELFPAY ==
--- NOTE | 2022-03-21 14:24 | DI.US.S_ITS ---
PROCEDURE: US OB >= 14 WEEKS FETUS INDICATIONS: anatomy scan OUTSIDE/PRIOR DATING DATA: Last menstrual period (LMP): 10/23/2021 LMP-based estimated date of delivery (ALICE): 07/30/2022. First dating scan (date and location): 12/21/2021. Estimated date of delivery (ALICE) from first dating scan: 08/26/2022. The calculations are made using the ultrasound ALICE of 07/30/2022. TECHNIQUE: Real-time scanning was performed of the fetus, with image documentation and biometric measurements. COMPARISON: [facility], , OB >= 14 WEEKS FETUS, 02/18/2022, 10:29. FINDINGS: General: A single living intrauterine gestation is present. Presentation: Vertex. Placenta: Placental position is posterior , without previa. Amniotic fluid index: 16.1 cm, normal range is 5-24 cm. Single deepest vertical pocket is not obtained heart rate: 163 beats per minute. Maternal cervical canal: 4.2 cm long. Normal lower limit is 2.5 cm. biometrics: Biparietal diameter: 22 weeks 3 days Head circumference: 20 weeks 6 days Abdominal circumference: 23 weeks 1 day Femur length: 22 weeks Clinically estimated gestational age: 21 weeks 2 days Composite gestational age from present scan: 22 weeks 3 days Estimated weight and percentile: 516 g; 96 percentile. Anatomic survey: Neuro: Ventricles are non-dilated at less than 10 mm. Cisterna magna is normal at 3-11 mm. Cerebellum is normal in size and morphology. Nuchal skin fold: Normal at less than 6 mm between 14-21 weeks gestational age. Face: Nose and lips, facial profile are normal. Spine: No evidence for spina bifida. Heart: 4-chambered heart is present, with normal ventricular outflow tracts. Diaphragm: Diaphragm is intact. Stomach: Left-sided stomach is present. Kidneys: No hydronephrosis. Normal is less than 5 mm in 2nd trimester, less than 7 mm in 3rd trimester. Cord: 3-vessel cord has orthotopic insertion. Bladder: Normal in size. Extremities: All 4 extremities identified. IMPRESSION: 1. Single living IUP redemonstrated and interval growth is greater than expected with estimated weight 96 percentile. Follow-up recommended to exclude early developing macrosomia. 2. Normal anatomic survey. We strive to produce accurate, complete, and clear reports of imaging services. To assist us in improving patient care, this report was composed using standard report templates and voice recognition software. Therefore, it may contain abnormal punctuation, insertions and/or omissions. Occasional wrong-word or sound-alike substitutions may occur. Though we review the report and make efforts to correct it, we do recommend that the report be read carefully in proper context to recognize any text inaccuracies. Dictated by: Jesus JETER Interpreted: Fab Franks MD on 03/21/2022 at 16:37 Transcribed by: BELKYS on 03/21/2022 at 16:40 Approved by: Fab Franks M.D. on 03/21/2022 at 16:53
== END ==
PROVIDERS: PCP Family Medicine; Referring Provider Obstetrics & Gynecology; Visit Provider Obstetrics & Gynecology
DX: Z34.82 Encounter for supervision of other normal pregnancy, second trimester (principal); Z3A.22 22 weeks gestation of pregnancy
CPT/HCPCS: 76811

== ENCOUNTER → 2022-05-25 09:46 | Outpatient (CLI) | payer OTHER, MEDICAID, SELFPAY ==
[2022-05-25 12:10] LABS: Hematocrit 33.9 % (36-46); Hemoglobin 11.9 g/dL (12.0-16.0)
[2022-05-25 12:13] LABS: GTT (PREG) 1 Hour PP 50gm Dose 87 mg/dL (76-139)
== END ==
PROVIDERS: PCP Family Medicine; Referring Provider Obstetrics & Gynecology; Visit Provider Obstetrics & Gynecology
DX: Z34.82 Encounter for supervision of other normal pregnancy, second trimester (principal); Z3A.26 26 weeks gestation of pregnancy
CPT/HCPCS: 36415; 82950; 85014; 85018

== ENCOUNTER → 2022-07-07 12:58 | Outpatient (CLI) | payer OTHER, MEDICAID, SELFPAY ==
[2022-07-08 15:18] LABS: Strep Grp B PCR POS for Grp B Strep
== END ==
PROVIDERS: PCP Family Medicine; Visit Provider Obstetrics & Gynecology
DX: Z34.83 Encounter for supervision of other normal pregnancy, third trimester (principal); Z3A.36 36 weeks gestation of pregnancy
CPT/HCPCS: 87653

== ENCOUNTER 2022-07-22 05:45 | Inpatient (IN) | payer OTHER, MEDICAID, SELFPAY ==
[2022-07-22 06:53] LABS: Add Manual Diff / Slide Review NO; Basophils Absolute Auto 0 /uL (0-100); Basophils Percent Auto 0.5 % (0-2); Eosinophils Absolute Auto 100 /uL (0-450); Eosinophils Percent Auto 1.5 % (2-4); Hematocrit 35.9 % (36-46); Hemoglobin 12.5 g/dL (12.0-16.0); Lymphocytes Absolute Auto 1800 /uL (1100-4500); Mean Corpuscular HGB Conc 34.8 % (30-36); Mean Corpuscular Volume 92.1 fL (80-100); Monocytes Absolute Auto 600 /uL (0-900); Monocytes Percent Auto 7.5 % (3-14); Neutrophils Absolute Auto 5300 /uL (1500-7000); Neutrophils Percent Auto 67.5 % (50-75); Platelet Count 202 X10^3/uL (150-400); Red Cell Distribution Width 14.2 % (11.6-14.8); White Blood Cell Count 7.8 X10^3/uL (4.5-11.0)
[2022-07-22 07:00] LABS: COVID19 -Nasal RAPID Negative (Negative)
[2022-07-22 07:04] VITALS: BP 138/78
[2022-07-22] MEDS: CITRIC ACID/SODIUM CITRATE 15 ML SOLUTION 30 ML PO (07:36)
--- NOTE | 2022-07-22 07:49 | PM.OBHP.IH.1 ---
OB HPI Date/Time Date of admission: 07/22/22 Date Patient Seen: 07/22/22 Time Patient Seen: 07:49 History of Present Condition Chief complaint: C SECTION ALICE Calculator Estimated Delivery Date Method Current WG Current Estimate 07/30/22 Ultrasound #1 38w 6d Other Estimates 07/09/22 LMP (Uncertain) 41w 6d Estimated Gestational Age (weeks): 39 : 5 Para: 2 care: initiated at week # (8), number of visits (11) and pounds weight gain (26) Dating criteria OB: LMP confirmed by 1st trimester US Ultrasounds: normal 1st trimester US and normal mid trimester US Obstetrical complications: none Medical complications OB: none Indications Operative indications ( section): previous uterine surgery Preadmission Labs Last OB Lab Results: Blood Type O Positive 02/18/22 10:52 Antibody Screen Negative 02/18/22 10:52 Hematocrit 35.9 % (36-46) L 07/22/22 06:15 Hemoglobin 12.5 g/dL (12.0-16.0) 07/22/22 06:15 Hepatitis B Surface Antigen Negative s/c (NEGATIVE) 02/18/22 10:52 Hepatitis C Antibody Negative s/c (NEGATIVE) 02/18/22 10:52 Rubella Antibody 20.7 IU/mL (>15) 02/18/22 10:52 Varicella-Zoster IgG Antibody <135 index (Immune >165) L 02/18/22 10:52 Glucose 1 Hour 87 mg/dL (76-139) 05/25/22 11:15 Group B Streptococcus (PCR) Pos for grp b strep H 07/07/22 12:58 -: Chlamydia screen: negative, Gonorrhea screen: negative and Urine: negative -: PAP smear: Normal Genetic Screens: Quad screen: Normal External Labs -: Urine: negative Prior (ies) Past Pregnancies Del. Date GA/Weeks Labor Lgth Wt Sex Route Outcome Anesthesia Place Delv Breastfeed Preg Comp Name 10/19/11 40 8 7 lb 12 oz Female vaginal live - full term epidural IH 2 mo none Aurea León 07/11/19 8 spontaneous 10/19/20 39 0 9 lb Male live - full term spinal IH Unable other Emiliano 08/12/21 6 spontaneous general Delivery Date: 10/19/11 Last Updated by: Laneydamaris Hannon R.N. Induced Delivery Date: 07/11/19 Last Updated by: Laney Hannon R.N. medication, bleeding for a long time Delivery Date: 10/19/20 Last Updated by: Laney Hannon R.N. Breech presentation Delivery Date: 08/12/21 Last Updated by: Laney Hannon R.N. D & C Evaluation Evaluation Baseline heart rate: 135 Variability: Moderate (11-25) monitor accelerations: Present Monitor Decelerations: Absent Status: Category l PFSH Medical History (Updated 05/26/22 @ 14:13 by Natalie Davis MD) Abnormal uterine bleeding (AUB) Breech presentation Delivery by section for breech presentation Surgical History (Updated 12/21/21 @ 14:23 by Natalie Davis MD) Anesthesia History of surgery (~10/01/19) History of surgery on arm Social History marital status: unmarried,living together household members: significant other and children lives independently: Yes housing: house pets and animals: Yes (Dogs, aware of Toxoplasmosis) education level: high school occupational status: unemployed current occupational exposures/hazards: No seatbelt use: always water heater temp set < 120 deg: Yes working smoke detector in home: Yes fire extinguisher in home: Yes carbon monox detector in home: Yes firearms in home: No do you feel safe at home: Yes Smoking Status: Never smoker second hand exposure: No alcohol intake: former substance use type: does not use during the past year weight has: remained stable well-balanced diet: daily or most days daily servings fruits/ve-4 caffeine: No (200mg limit) Type(s) of exercise: walking frequency: daily Meds Home Medications and Allergies Home Medications Medication Instructions Recorded Confirmed Type VIT#96/FERROUS FUM/FA 1 tab PO Q DAY ##0 07/01/11 07/22/22 History ( Tablet) ondansetron 4 mg disintegrating 4 mg PO Q6H PRN nausea and 12/21/21 07/22/22 Rx tablet vomiting #20 tabs Allergies Allergy/AdvReac Type Severity Reaction Status Date / Time No Known Allergies Allergy Verified 07/18/22 14:57 OB Exam Narrative Exam Narrative: Generally: Patient is sitting up in bed, no acute distress Lungs: Clear to auscultation bilaterally Cardiovascular: Regular rate rhythm Fundal height: 39 cm Estimated weight 7 and half to 8 lb Abdomen: Well-healed Pfannenstiel scar Extremities: No edema Objective Labs Result Diagrams: 07/22/22 06:15 Labs: Laboratory Results - last 24 hr 07/22/22 07/22/22 06:15 06:15 WBC 7.8 RBC 3.90 L Hgb 12.5 Hct 35.9 L MCV 92.1 MCH 32.0 MCHC 34.8 RDW 14.2 Plt Count 202 Neut % (Auto) 67.5 Lymph % (Auto) 23.0 L Waldo % (Auto) 7.5 Eos % (Auto) 1.5 L Baso % (Auto) 0.5 Neut # (Auto) 5300 Lymph # (Auto) 1800 Waldo # (Auto) 600 Eos # (Auto) 100 Baso # (Auto) 0 SARS-CoV-2 (PCR) Negative Assessment and Plan Assessment and Plan Assessment and Plan narrative: Assessment: 32-year-old 5 para 2 with a previous section Estimated gestational age of Thirty-nine weeks gestation Plan: Repeat low-transverse section The risks, benefits, and alternatives to the procedure were explained to the patient. The risks including bleeding, infection, injury to the bowel, bladder, or ureters. She understands these risks and agrees to proceed. A full par Q was held and consent form was signed. Time Spent with Patient Total time spent with greater than 50% in coordination of care (as documented) at patient's floor/unit and/or counseling patient:: less than 15 minutes
--- NOTE | 2022-07-22 07:53 | PM.PREOP ---
Pre-operative Note COVID-19 COVID-19 status: Negative Result date/Date tested (Pos, Neg/Pending): 07/22/22 Criteria for continued procedure: Non-surgical alternatives not available or appropriate per current SOC Interval Note History & Physical reviewed/Exam performed by Physician: Yes Changes to H&P: No H&P completed within 30 days and has changed as indicated here:: 07/22/22
[2022-07-22] MEDS: CEFAZOLIN 2 GM/100 ML PREMIX 100 ML IV (07:56)
--- NOTE | 2022-07-22 08:34 | SUR.OPER ---
Supine on Padded OR bed, head on pillow, safety belt at thigh, arms secured on padded arm boards at <90 degrees abduction. Bump under right buttock. Legs uncrossed with pillow under knees, gel pad to heels,
--- NOTE | 2022-07-22 08:40 | SUR.OPER ---
cord blood and placenta given to OB RN
[2022-07-22 09:08] VITALS: BP 102/63; PULSE 63; RESP 22; TEMP 35.9; O2SAT 98
--- NOTE | 2022-07-22 09:08 | PM.OBCS.1 ---
Operative Date/Time/Diagnoses Date of procedure: 07/22/22 Time of procedure: 09:15 Pre-op diagnosis: Previous C section EGA 39 weeks Post-op diagnosis: same Procedure & Clinicians Procedure: Repeat low-transverse section Same procedure as scheduled: Yes Indications: Estimated gestational age of 39 weeks Previous section Surgeon: Natalie Davis Black Top Machine Operator: Golden Shetty Anesthesia Type: Spinal (With Duramorph) Operative Notes Findings: Live male in the complete breech presentation Normal uterus, tubes, and ovaries Closure Type: primary Specimen(s): cord blood and placenta Intraoperative meds administered: Duramorph, Ketorolac and Pitocin Applied: Catheter (To continuous drainage) Estimated Blood Loss (mL): 350 Blood products transfused: none Procedure in detail: The patient was taken to the operating room where she was placed in the seated position. Spinal anesthesia with Duramorph was administered. The patient was then placed in the dorsal supine position with a leftward tilt. She was prepped and draped in the usual sterile fashion. A timeout was performed. After spinal analgesia was found to be adequate, a Pfannenstiel skin incision was made through the previous incision and carried through to the underlying layer fascia. The fascia was nicked in the midline, and the incision extended bilaterally with the Gibson scissors. The superior aspect of the fascial incision was grasped with a Marianna clamps, elevated, and the underlying rectus muscles dissected off sharply and bluntly. Attention was then turned to the inferior aspect of this incision which in a similar fashion was grasped with a Charlotte clamps, elevated, and the underlying rectus muscles dissected off sharply and bluntly. The rectus muscles were in the midline. The peritoneum was identified, grasped between 2 hemostats, and entered sharply with the Metzenbaum scissors. This incision was extended superiorly and inferiorly with good visualization of the bladder. The bladder blade was inserted. The vesicouterine peritoneum was identified, grasped with the pickup, and entered sharply with the Metzenbaum scissors. This incision was extended bilaterally, and the bladder flap was created digitally. The bladder blade was reinserted. The lower uterine segment was incised in a transverse fashion with the scalpel. Upon entering the amniotic sac there was moderate amount of clear amniotic fluid. The was delivered by total breech extraction. The nose and mouth were suctioned with bulb suction. The cord was double clamped and cut after 1 minute. The was handed off to waiting RN and RT. The placenta was delivered by expression.. The uterus was cleared of all clots and debris. A ring forcep was used to open the cervix. The uterine incision was repaired with #1 chromic in a running interlocking fashion, and a second layer the same suture was used for an imbricating layer. Hemostasis was achieved. The tubes and ovaries were examined and were found to be normal. The gutters were cleared of all clots and debris. The bladder flap was reapproximated using 2-0 Vicryl in a running fashion. The parietal peritoneum was closed using 2-0 Vicryl in a running fashion. The fascia was reapproximated using 0 Vicryl in a running fashion. The subcutaneous layer was copiously irrigated with warm normal saline. 6 simple interrupted sutures of 3-0 Vicryl were placed to reapproximate the subcutaneous layer. The skin was closed with 4-0 Monocryl in a subcuticular fashion. Steri-Strips were placed. An Aquacel dressing was placed. The uterus was expressed of a small amount of old blood. Sponge, lap, and instrument counts were correct x-2. The patient tolerated the procedure well, and was taken to PACU in stable condition. Complications: none Baby 1: Gender: Male Presentation: breech Details: complete Placental Delivery Description: Expressed Cord Vessel Description: 3 Vessels and Clamped/Cut (After 1 minute) score (1 min): 9 score (5 min): 9 weight: 8 lb 1 oz Post-operative Condition: stable Disposition: PACU Aftercare: routine postop
[2022-07-22 09:13] VITALS: BP 144/104; PULSE 63; RESP 22; O2SAT 98
[2022-07-22 09:18] VITALS: BP 111/70; PULSE 73; RESP 13; TEMP 35.9; O2SAT 99
[2022-07-22 09:23] VITALS: BP 99/58; PULSE 63; RESP 20; O2SAT 99
[2022-07-22] MEDS: KETOROLAC 30 MG/ML VIAL IV ×2 (14:57→21:12)
[2022-07-22] MEDS: ONDANSETRON 4 MG/2 ML INJ IV (18:27)
[2022-07-23] MEDS: KETOROLAC 30 MG/ML VIAL IV (03:28)
[2022-07-23 07:27] LABS: Hematocrit 31.4 % (36-46); Hemoglobin 11.1 g/dL (12.0-16.0)
[2022-07-23] MEDS: IBUPROFEN 600 MG TABLET PO (08:57)
[2022-07-23] MEDS: DOCUSATE 100 MG CAPSULE 200 MG PO (08:58)
[2022-07-23] MEDS: PRENATAL VIT,CALC/IRON/FOLIC 1 TABLET 1 TAB PO (08:58)
== END 2022-07-23 11:14 | disposition home or self-care (01) | DRG 540 ==
PROVIDERS: Admitting Provider Obstetrics & Gynecology; PCP Family Medicine; Referring Provider Obstetrics & Gynecology; Visit Provider Obstetrics & Gynecology
PROC: 10D00Z1 Extraction of Products of Conception, Low, Open Approach (ICD-10-PCS; CPT 59514; principal; 2022-07-22 07:45)
DX: O34.211 Maternal care for low transverse scar from previous cesarean delivery (principal); Z3A.39 39 weeks gestation of pregnancy; Z37.0 Single live birth; O99.824 Streptococcus B carrier state complicating childbirth; Z20.822 Contact with and (suspected) exposure to COVID-19
CPT/HCPCS: 36415; 59050; 59514; 85014; 85018; 85025; 86850; 86900; 86901; 87635; C9803; J0690; J1885; J2274; J2405; J3010

== ENCOUNTER → 2024-08-14 12:03 | Outpatient (CLI) | payer OTHER, SELFPAY ==
[2024-08-14 16:54] LABS: Urine N gonorrhoeae NOT DETECTED
[2024-08-14 16:55] LABS: Urine Chlamydia NOT DETECTED
== END ==
PROVIDERS: PCP Family Medicine; Visit Provider Obstetrics & Gynecology
DX: Z34.80 Encounter for supervision of other normal pregnancy, unspecified trimester (principal); Z11.3 Encounter for screening for infections with a predominantly sexual mode of transmission
CPT/HCPCS: 87491; 87591

== ENCOUNTER → 2024-09-26 09:12 | Outpatient (CLI) | payer OTHER, SELFPAY ==
[2024-09-26 09:58] LABS: Add Manual Diff / Slide Review NO; Basophils Absolute Auto 0 /uL (0-100); Basophils Percent Auto 1.1 % (0-2); Eosinophils Absolute Auto 100 /uL (0-450); Eosinophils Percent Auto 2.4 % (2-4); Hematocrit 34.1 % (36-46); Hemoglobin 11.7 g/dL (12.0-16.0); Lymphocytes Absolute Auto 900 /uL (1100-4500); Lymphocytes Percent Auto 23.3 % (25-40); Mean Corpuscular HGB Conc 34.4 % (30-36); Mean Corpuscular Hemoglobin 32.1 PG (26-34); Mean Corpuscular Volume 93.4 fL (80-100); Monocytes Absolute Auto 200 /uL (0-900); Monocytes Percent Auto 6.3 % (3-14); Neutrophils Absolute Auto 2500 /uL (1500-7000); Neutrophils Percent Auto 66.9 % (50-75); Platelet Count 199 X10^3/uL (150-400); Red Blood Cell Count 3.65 X10^6/uL (4.0-5.2); Red Cell Distribution Width 12.4 % (11.6-14.8); White Blood Cell Count 3.7 X10^3/uL (4.5-11.0)
[2024-09-26 10:17] LABS: Natera Collection Specimen Collected
[2024-09-26 15:24] LABS: Hepatitis B Surface Antigen NEGATIVE s/c (NEGATIVE); Rubella Antibody IgG 29.7 IU/mL (>15)
[2024-09-26 15:49] LABS: HIV 1 & 2 Ab/Ag 4th Gen Combo NEGATIVE (NEGATIVE); Hep C Virus Ab w/Reflex Quant NEGATIVE s/c (NEGATIVE)
[2024-09-27 04:08] LABS: RPR Screen Non Reactive (Non Reactive)
[2024-09-27 05:41] LABS: Varicella IgG Antibody Non Reactive (Non Reactive)
== END ==
PROVIDERS: Obstetrics & Gynecology; PCP Internal Medicine; Referring Provider Specialist; Visit Provider Specialist
DX: Z34.81 Encounter for supervision of other normal pregnancy, first trimester (principal); Z3A.13 13 weeks gestation of pregnancy
CPT/HCPCS: 80055; 86787; 86803; 86850; 86900; 86901; 87389

== ENCOUNTER → 2024-11-18 06:47 | Outpatient (CLI) | payer OTHER, SELFPAY ==
--- NOTE | 2024-11-18 06:48 | DI.US.S_ITS ---
PROCEDURE: US OB >= 14 WEEKS FETUS INDICATIONS: 20 week anatomy scan OUTSIDE/PRIOR DATING DATA: Last menstrual period (LMP): Unknown. LMP-based estimated date of delivery (ALICE): Unknown. First dating scan (date and location): 08/30/2024. Estimated date of delivery (ALICE) from first dating scan: 03/30/2025. The calculations are made using the ultrasound ALICE of 03/30/2025. TECHNIQUE: Real-time scanning was performed of the fetus, with image documentation and biometric measurements. Endovaginal scanning: Not performed COMPARISON: [facility], , US OB <= 14 WEEKS FETUS, 08/30/2024, 12:12. FINDINGS: General: A single living intrauterine gestation is present. Presentation: Vertex. Placenta: Placental position is posterior fundal, without previa. Amniotic fluid index: 17.3 cm, normal range is 5-24 cm. Single deepest vertical pocket is 6 cm. heart rate: 141 beats per minute. Maternal cervical canal: 3.8 cm long. Normal lower limit is 2.5 cm. biometrics: Biparietal diameter: 5.0 cm, 21 weeks 0 days Head circumference: 19.2 cm, 21 weeks 3 days Abdominal circumference: 15.9 cm, 21 weeks 0 days Femur length: 3.4 cm, 20 weeks 6 days Clinically estimated gestational age: 21 weeks 1 day Composite gestational age from present scan: 21 weeks 1 day Estimated weight and percentile: 390 g, 35th percentile Anatomic survey: Neuro: Ventricles are non-dilated at less than 10 mm. Cisterna magna is normal at 3-11 mm. Cerebellum is normal in size and morphology. Nuchal skin fold: Normal at less than 6 mm between 14-21 weeks gestational age. Face: Nose and lips, facial profile are normal. Spine: No evidence for spina bifida. Heart: 4-chambered heart is present, with normal ventricular outflow tracts. Diaphragm: Diaphragm is intact. Stomach: Left-sided stomach is present. Kidneys: No hydronephrosis. Normal is less than 5 mm in 2nd trimester, less than 7 mm in 3rd trimester. Cord: 3-vessel cord has orthotopic insertion. Bladder: Normal in size. Extremities: All 4 extremities identified. IMPRESSION: 1. Moralez living intrauterine at 21 weeks 1 day based on today's ultrasound. Fetus is in the 35th percentile for weight. 2. Normal placenta and amniotic fluid. 3. Normal and complete anatomic survey. We strive to produce accurate, complete, and clear reports of imaging services. To assist us in improving patient care, this report was composed using standard report templates and voice recognition software. Therefore, it may contain abnormal punctuation, insertions and/or omissions. Occasional wrong-word or sound-alike substitutions may occur. Though we review the report and make efforts to correct it, we do recommend that the report be read carefully in proper context to recognize any text inaccuracies. Dictated by: Terry Gaffney M.D. on 11/18/2024 at 10:48 Approved by: Terry Gaffney M.D. on 11/18/2024 at 10:55
== END ==
PROVIDERS: PCP Internal Medicine; Referring Provider Specialist; Visit Provider Specialist
DX: Z36.89 Encounter for other specified antenatal screening (principal); Z3A.21 21 weeks gestation of pregnancy
CPT/HCPCS: 76811

== ENCOUNTER → 2024-11-21 09:41 | Outpatient (CLI) | payer OTHER, SELFPAY ==
[2024-11-23 20:07] LABS: AFP Value 77.9 ng/mL (.); Gest Age on Col Date 21.6 weeks (.); Gestational Age Ultrasound (.); Insulin Dep Diabetes No (.); OSBR Risk 1IN 9862 (.); Results Report (.); Test Results *Screen Negative* (.)
[2024-11-28 11:10] LABS: PDF SCANNED
== END ==
PROVIDERS: Specialist; PCP Internal Medicine; Referring Provider Obstetrics & Gynecology; Visit Provider Obstetrics & Gynecology
DX: Z34.92 Encounter for supervision of normal pregnancy, unspecified, second trimester (principal); Z3A.21 21 weeks gestation of pregnancy
CPT/HCPCS: 36415; 82105

== ENCOUNTER → 2025-01-16 10:13 | Outpatient (CLI) | payer OTHER, SELFPAY ==
[2025-01-16 12:03] LABS: Hemoglobin 11.8 g/dL (12.0-16.0)
[2025-01-16 12:37] LABS: GTT (PREG) 1 Hour PP 50gm Dose 63 mg/dL (76-139)
== END ==
PROVIDERS: PCP Internal Medicine; Referring Provider Specialist; Visit Provider Specialist
DX: Z34.82 Encounter for supervision of other normal pregnancy, second trimester (principal); Z3A.26 26 weeks gestation of pregnancy
CPT/HCPCS: 36415; 82950; 85014; 85018

== ENCOUNTER → 2025-03-05 16:45 | Outpatient (CLI) | payer OTHER, SELFPAY ==
[2025-03-06 13:33] LABS: Strep Grp B PCR POS for Grp B Strep
== END ==
PROVIDERS: PCP Internal Medicine; Visit Provider Obstetrics & Gynecology
DX: Z34.83 Encounter for supervision of other normal pregnancy, third trimester (principal); Z3A.36 36 weeks gestation of pregnancy
CPT/HCPCS: 87653

== ENCOUNTER 2025-03-24 05:49 | Inpatient (IN) | payer OTHER, SELFPAY ==
--- NOTE | 2025-03-24 | PATH_ITS ---
[facility] Accession Number: [id number] No. of containers..01 Tissue . 01 Material submitted: . fallopian tube - BILATERAL FALLOPIAN TUBES . 01 Diagnosis: BILATERAL FALLOPIAN TUBES: Longer fallopian tube, complete cross-section; negative for significant atypia. Meyers Chuck fallopian tube, complete cross-sections with benign paratubal cysts (up to 10 mm); negative for significant atypia. [facility] 03/27/2025 1725 Local . 01 Electronically signed: . Melissa Chandra MD, Pathologist NPI- [id number] . 01 Gross description: . Received in formalin with two identifiers and bilateral fallopian tubes, are two unoriented, fimbriated fallopian tubes, 8.0 x 0.9 cm and 8.3 x 1.2 cm. Both tubes have violaceous, smooth serosa with the shorter tube having multiple cystic structures up to 1.0 cm in greatest dimension filled with clear serous fluid. The lumens are stellate and unremarkable. Rubbing Bed Operator sections to include one-half of bisected fimbriae and cross-sections are submitted as follows: . A1: Longer fallopian tube. A2: Meyers Chuck fallopian tube. ([id number]) /MRV 03/26/2025 1354 Local . 01 Pathologist provided ICD-10: Z30.2, O34.219 . 01 CPT . 816520 Specimen Comment: A courtesy copy of this report has been sent to [phone] Performed at: [address] [facility] [address], [place], [place] [id number] MD Arsenio Arevalo MD Phone: [phone]
[2025-03-24 06:30] LABS: Add Manual Diff / Slide Review NO; Hematocrit 36.4 % (36-46); Hemoglobin 12.7 g/dL (12.0-16.0); Lymphocytes Absolute Auto 2600 /uL (1100-4500); Mean Corpuscular HGB Conc 35.0 % (30-36); Mean Corpuscular Hemoglobin 32.5 PG (26-34); Mean Corpuscular Volume 92.8 fL (80-100); Platelet Count 282 X10^3/uL (150-400)
--- NOTE | 2025-03-24 07:00 | P.HPOB_ITS ---
OB HPI Date/Time Date of admission: 03/24/25 Date Patient Seen: 03/24/25 Time Patient Seen: 07:00 History of Present Condition Chief complaint: INPT C SECTION ALICE Calculator 2 Estimated Delivery Date Method Current WG Current Estimate 03/30/25 Ultrasound #2 39w 1d Other Estimates 01/31/25 LMP (Uncertain) 47w 3d 04/04/25 Ultrasound #1 38w 3d Estimated Gestational Age (weeks): 39+1 : 6 Para: 3 care: good care, initiated at week # (7), number of visits (2) and pounds weight gain (39) Dating criteria OB: LMP confirmed by 1st trimester US Ultrasounds: normal 1st trimester US and normal mid trimester US Obstetrical complications: none Medical complications OB: none Indications Operative indications ( section): previous uterine surgery Preadmission Labs Last OB Lab Results: 2 Blood Type O Positive Today, 06:16 Antibody Screen Negative Today, 06:16 Hct, (36-46) 36.4 % Today, 06:16 Hgb, (12.0-16.0) 12.7 g/dL Today, 06:16 Hep Bs Antigen, (NEGATIVE) Negative s/c 09/26/24, 09: 17 Hepatitis C Antibody, (NEGATIVE) Negative s/c 5, 09:17 Rubella Antibody, (>15) 29.7 IU/mL 09/26/24, 09:17 VZV IgG Antibody, (Non Reactive) Non reactive 5, 09:17 Glucose 1 Hr 50 gm, (76-139) 63 mg/dL L 01/16/25, 1 0:18 Group B Strep (PCR) Pos for grp b strep H 03/05/25, 15:30 -: Chlamydia screen: negative, Gonorrhea screen: negative and Urine: negative Genetic Screens: Cell-free DNA: Normal (low risk male) and Alpha-fetoprotein: Normal External Labs -: Urine: negative Prior (ies) Past Pregnancies Del. Date GA/Weeks Labor Lgth Wt Sex Route Outcome Anesthesia Place Delv Breastfeed Preg Comp Name 10/19/11 40 8 7 lb 12 oz Female vaginal live - full term epid ural IH 2 mo Aurea León 07/11/19 8 spontaneous 10/19/20 39 0 9 lb Male live - full term spinal I H Unable Emiliano 08/12/21 6 spontaneous general 07/22/22 39 8 lb 1.1 oz Male live - full term [facility] couple months [place] Delivery Date: 10/19/11 Last Updated by: Laney Hannon R.N. Induced Delivery Date: 07/11/19 Last Updated by: Laney Hannon R.N. medication, bleeding for a long time Delivery Date: 10/19/20 Last Updated by: Laney Hannon R.N. Breech presentation Delivery Date: 08/12/21 Last Updated by: Laney Hannon R.N. D & C Evaluation Evaluation Baseline heart rate: 135 Variability: Moderate (6-25) monitor accelerations: Absent Monitor Decelerations: Absent Status: Category l PFSH Medical History (Updated 01/20/25 @ 14:35 by Natalie Davis MD) Syncopal episodes Delivery by section for breech presentation Breech presentation Abnormal uterine bleeding (AUB) Surgical History (Updated 08/26/24 @ 11:18 by Natalie Davis MD) [place] teeth removed (02/05/12) History of section History of surgery on arm (~2018) Anesthesia History of surgery (~10/01/19) Family History (Updated 08/08/24 @ 09:42 by Myrna Hanson RN) Father Hypertension Aunt Colon cancer Social History marital status: number of children: 3 household members: spouse and children lives independently: Yes caregiver/support person: Yes housing: house pets and animals: Yes (Dogs, multiple types of livestock) education level: high school occupational status: unemployed current occupational exposures/hazards: No special adan needs: No travel history: over 6 months ago seatbelt use: always water heater temp set < 120 deg: Yes working smoke detector in home: Yes fire extinguisher in home: Yes carbon monox detector in home: Yes firearms in home: No do you feel safe at home: Yes Smoking Status: Never smoker second hand exposure: No alcohol intake: former (very rarely when not ) substance use type: does not use during the past year weight has: remained stable well-balanced diet: daily or most days daily servings fruits/ve or more times/day caffeine: Yes (single cup coffee in AM) Type(s) of exercise: walking and other (active with children) frequency: daily Meds Home Medications and Allergies Home Medications ?Medication ?Instructions ?Recorded ?Confirmed ?Type vitamin-ferrous sulfate tab PO 08/08/2403/20 History 27 mg iron-folic acid 0.8 mg tablet Allergies Allergy/AdvReac Type Severity Reaction Status Date / Time No Known Allergies Allergy Verified 03/20/25 15:58 OB Exam Narrative Exam Narrative: Generally: Patient is sitting up in bed, no acute distress HEENT: No thyromegaly, no anterior cervical or supraclavicular lymphadenopathy. Lungs:Clear to auscultation bilaterally, no wheezes. Cardiovascular: Regular rate and rhythm, no murmurs, rubs, or gallops. Abdomen: Well-healed Pfannenstiel scars. No hepatosplenomegaly. No masses palpable. Fundal height: 39 cm Estimated weight: 7-1/2 lb Extremities: No edema Objective Labs 03/24/25 06:16 Labs: Laboratory Results - last 24 hr 03/24/25 06:16 WBC 13.1 H RBC 3.92 L Hgb 12.7 Hct 36.4 MCV 92.8 MCH 32.5 MCHC 35.0 RDW 13.7 Plt Count 282 Neut % (Auto) 68.9 Lymph % (Auto) 20.1 L [place] % (Auto) 8.1 Eos % (Auto) 2.0 Baso % (Auto) 0.9 Neut # (Auto) 9000 H Lymph # (Auto) 2600 [place] # (Auto) 1100 H Eos # (Auto) 300 Baso # (Auto) 100 Assessment and Plan Assessment and Plan Assessment and Plan narrative: Assessment: 34-year-old 6 para 3 at 39-,1/7 weeks gestation Previous section x2 Desires permanent sterilization Plan: Repeat section Removal of old scar Bilateral salpingectomy The risks, benefits, and alternatives to the procedure were explained to the patient. The risks including bleeding, infection, injury to the bowel, bladder, or ureters. She understands that the salpingectomy is a sterilization procedure. She understands all of these risks and agrees to proceed. A full par Q was held and consent form was signed. Time-Based Coding :: [TOTAL MINUTES] spent with patient and on the chart (including review of chart, obtaining history, exam, reviewing outside data, placing orders, documenting exam and treatment plan, and counseling patient) on [DATE].
--- NOTE | 2025-03-24 07:05 | PM.PREOP ---
Pre-operative Note Interval Note History & Physical reviewed/Exam performed by Physician: Yes Changes to H&P: No H&P completed within 30 days and has changed as indicated here:: 03/24/25
[2025-03-24] MEDS: CITRIC ACID/SODIUM CITRATE 15 ML SOLUTION 30 ML PO (07:16)
[2025-03-24] MEDS: LACTATED RINGERS 1,000 ML 999 ML IV ×2 (07:17→09:07)
[2025-03-24] MEDS: CEFAZOLIN 2 GM/100 ML PREMIX 100 ML IV (07:54)
[2025-03-24] MEDS: ACETAMINOPHEN IV 1,000 MG/100 ML VIAL 400 MG IV (08:20)
--- NOTE | 2025-03-24 09:08 | SUR.OPER ---
FHR prior to incision 129. water at 0827, Viable baby boy born at 0828. Cord blood and placenta handed off to Labor and deliver nurse.
--- NOTE | 2025-03-24 09:20 | PM.OBCS.1 ---
Operative Date/Time/Diagnoses Date of procedure: 03/24/25 Time of procedure: 09:20 Pre-op diagnosis: 39+ 1 week's gestation Previous section x2 Desires permanent sterilization Post-op diagnosis: same Procedure & Clinicians Procedure: Repeat low transverse section Bilateral salpingectomy Scar revision Same procedure(s) as scheduled: Yes Indications: 34-year-old 6 para 3 with 2 prior sections and desires permanent sterilization Surgeon: Natalie Davis Click Yes if Unassisted: Yes Industrial Registered Nurse: Nelia Giron Anesthesia Type: Spinal (With Duramorph) Operative Notes Findings: Live male in beni breech presentation Normal uterus, tubes, and ovaries Closure Type: primary Specimen(s): cord blood, placenta and tubes/segments of tubes Intraoperative meds administered: Acetaminophen, Duramorph, Ketorolac and Pitocin Applied: Catheter (To continuous drainage) Estimated Blood Loss (mL): 400 Blood products transfused: none Procedure in detail: The patient was taken to the operating room where she was placed in the seated position. After spinal anesthesia with Duramorph was placed, she was placed in the dorsal supine position, with a leftward tilt, and prepped and draped in the usual sterile fashion. A time-out was performed. After spinal anesthesia was found to be adequate, an elliptical incision was made around the 2 previous scars and carried through to the underlying layer of fascia. The fascia was nicked in the midline and the incision extended bilaterally with the Gibson scissors. The superior aspect of the fascial incision was grasped with Erica clamps, elevated, and the underlying rectus muscles dissected off bluntly and with the Bovie. In a similar fashion the inferior aspect of this incision was grasped with the Erica clamps, elevated, and the underlying rectus muscles dissected off with the Bovie. The peritoneum was identified, grasped between 2 hemostats, and entered sharply with the Metzenbaum scissors. This incision was extended bluntly. The bladder blade was inserted. The vesicouterine peritoneum was identified, grasped with a pickup, and entered sharply with the Metzenbaum scissors. This incision was extended bilaterally, and a bladder flap created digitally. The bladder blade was reinserted. The lower uterine segment was incised in a transverse fashion with the scalpel. Upon entering the amniotic sac there was clear amniotic fluid. The was found to be in the beni breech presentation. Delivery by total breech extraction was performed. The was wrapped in a warm blanket. After 1 minute, the cord was double clamped and cut. Cord bloods were obtained. Pitocin was given in the IV fluids. The placenta was delivered by expression. The uterus was cleared of all clots and debris. The uterine incision was repaired with 1. Chromic in a running interlocking fashion. A second layer of the same suture was used for an imbricating layer. Hemostasis was achieved. The tubes and ovaries were examined and were found to be normal. The left tube was carried out to the fimbriated end and grasped with a [place]. Using the short power seal, the mesosalpinx was cauterized and cut all the way down to the cornua of the uterus. The tube was amputated at the cornua. Hemostasis was achieved. This was repeated on the patient's right tube. The gutters were cleared of all clots and debris. The peritoneum was closed using 2-0 Vicryl in a running fashion. The fascia was reapproximated using 0 Vicryl in a running fashion. The subcutaneous layer was copiously irrigated with warm normal saline. The Bovie was used for hemostasis. Five simple interrupted sutures of 3-0 Vicryl were placed to reapproximate the subcutaneous layer. The skin was closed with 4-0 Monocryl in a subcuticular fashion. Steri-Strips and an Aquacel dressing were placed. The uterus was expressed of a small amount of old blood. The uterus was firm at U-1 at the completion of the procedure. Sponge, lap, and instrument counts were correct x2. The patient tolerated the procedure well, and was taken to PACU in stable condition. Complications: none Baby 1: Delivery Date: 03/24/25 Delivery Time: Gender: Male Presentation: breech Details: beni Placental Delivery Description: Expressed Cord Vessel Description: 3 Vessels and Clamped/Cut (After 1 minutes) score (1 min): 8 score (5 min): 9 weight: 7 lb 3.4 oz Post-operative Condition: stable Disposition: PACU Aftercare: routine postop
[2025-03-24 09:24] VITALS: BP 115/64; PULSE 74; RESP 16; TEMP 36.2; O2SAT 98
[2025-03-24 09:29] VITALS: BP 155/67; PULSE 77; RESP 18
[2025-03-24 09:34] VITALS: BP 116/77; PULSE 80; RESP 16; TEMP 36.2; O2SAT 98
--- NOTE | 2025-03-24 11:10 | SUR.OPER ---
Per labor and special delivery mail carrier, scores for baby were 8/9.
[2025-03-24] MEDS: KETOROLAC 30 MG/ML VIAL IV ×2 (14:45→20:49)
[2025-03-24] MEDS: ACETAMINOPHEN 325 MG TABLET 650 MG PO ×2 (17:32→23:37)
[2025-03-24] MEDS: LANOLIN OINT 7 GM 1 APPLIC TOP (17:34)
[2025-03-24] MEDS: SENNOSIDES 8.6 MG TABLET 17.2 MG PO (20:50)
[2025-03-25] MEDS: KETOROLAC 30 MG/ML VIAL IV (03:05)
[2025-03-25] MEDS: ACETAMINOPHEN 325 MG TABLET 650 MG PO (05:47)
[2025-03-25 05:56] LABS: Hematocrit 32.7 % (36-46); Hemoglobin 11.3 g/dL (12.0-16.0)
--- NOTE | 2025-03-25 21:17 | PM.OBDS.1 ---
Discharge Providers Provider Date of admission: 03/24/25 05:49 Discharge Date: 03/25/25 Primary care physician: Devin Ray DO Consults: 03/24/25 10:30 Consult to Distribution Operations Supervisor Routine Comment: Discharge provider: Natalie Davis MD Summary Hospital Course Date Patient Seen: 03/25/25 Time Patient Seen: 07:50 Diagnoses: 39-1/7 weeks gestation Previous section x2 Desires permanent sterilization Repeat low transverse section Bilateral salpingectomy Scar revision Hospital Course: Patient is a 34-year-old 6 para 4 who presented on March 24, 2025 for a scheduled repeat section, bilateral salpingectomy, and scar revision. She underwent these procedures without complication. Her course was unremarkable and on day # 1 she was tolerating a diet, voiding without the catheter, ambulating independently, no nausea or vomiting, and pain well controlled. was going well. She is discharged home Peripartum Data Delivery Method: Section Procedures: Spinal anesthesia with Duramorph Repeat low transverse section Bilateral salpingectomy Scar revision complications: none 1: Gender: Male Disposition of : home Status at Discharge Cognitive/behavioral status at discharge: oriented Functional status at discharge: independent ambulation Overall status at discharge: patient is progressing back to baseline Time Spent with Patient Time attestation: Total time spent providing and/or coordinating discharge services: Time spent: Less than 30 minutes Objective Labs 03/25/25 05:47 Labs: Laboratory Results - last 24 hr 03/25/25 05:47 Hgb 11.3 L Hct 32.7 L Exam Vital Signs (past 8 hours): Oxygen Delivery Method Room Air Oxygen Flow Rate 98 Narrative Exam Narrative: Generally: Patient is sitting up in bed, no acute distress Lungs: Clear to auscultation bilaterally Cardiovascular: Regular rate and rhythm Fundus: Firm at U -1 Incision: Clean dry and intact with Aquacel dressing. There is a small area of old blood on the right edge of the dressing. Extremities: No edema, negative Homans Discharge Plan Discharge Plan Patient Disposition: Home Provider Discharge Comment: Call with fever, chills, redness or drainage around the incision, or bleeding vaginally more than a pad in an hour Stool softeners as needed Push oral fluids Ibuprofen 600 mg every 6 hours as needed Tylenol 650 mg every 6 hours as needed Discharge orders & Medications Prescriptions: Continued vit-ferrous sulfat-FA 27 mg iron- 0.8 mg tablet 1 tab PO DAILY Follow up/Referrals: Natalie Davis MD [Physician, SALES PROMOTION REPRESENTATIVE] - 04/02/25 2:00 pm Referral Note: Please follow up with your OBGYN on MondayApril 02 at 2pm for your one week incisional check, along with your 6 week appointment on May 05 at 2pm. Diet/Activity/Treatments Diet: Regular Activity: No heavy lifting, nothing more than the baby Skin/Wound/Dressing Care Report to your healthcare provider any signs of infection, such as:: chills, fever, increased pain, unusual drainage and unusual redness Dressing: Do not remove Visit Report/Discharge Packet Instructions: DI for Stand Alone Forms: Patient Portal/API, Stroke Signs & Symptoms Discharge Data Primary Care Provider: Devin Ray
== END 2025-03-25 12:40 | disposition home or self-care (01) | DRG 785 ==
PROVIDERS: Admitting Provider Obstetrics & Gynecology; PCP Internal Medicine; Referring Provider Obstetrics & Gynecology; Visit Provider Obstetrics & Gynecology
PROC: 10D00Z1 Extraction of Products of Conception, Low, Open Approach (ICD-10-PCS; CPT 59514; principal; 2025-03-24 07:45)
DX: O34.211 Maternal care for low transverse scar from previous cesarean delivery (principal); Z37.0 Single live birth; Z30.2 Encounter for sterilization; O32.8XX0 Maternal care for other malpresentation of fetus, not applicable or unspecified; Z3A.39 39 weeks gestation of pregnancy; O99.824 Streptococcus B carrier state complicating childbirth
CPT/HCPCS: 36415; 85014; 85018; 85025; 86850; 86900; 86901; J0131; J0690; J1885; J2274; J2704